=== PATIENT | female | born 1995 | race African-American/Black ===

== ENCOUNTER 2021-04-13 06:00 | Emergency (ER) | payer OTHER ==
[~2021-04-13] VITALS: Ht 167.6 cm; Wt 115.0 kg
[2021-04-13 06:08] VITALS: BP 122/64
[2021-04-13] MEDS ORDERED: ONDANSETRON 4MG ODT PO STA (06:20)
[2021-04-13] MEDS ORDERED: MAGNESIUM/ALUMINUM HYDROXIDE/SIMETHICONE 30ML UDC PO STA (06:20)
[2021-04-13 06:42] LABS: CLARITY URINE CLEAR (CLEAR); COLOR URINE YELLOW (YELLOW); KETONES URINE NEGATIVE (NEGATIVE); LEUKOCYTE ESTERASE URINE NEGATIVE (NEGATIVE); NITRITE URINE NEGATIVE (NEGATIVE); OCCULT BLOOD URINE NEGATIVE (NEGATIVE); PROTEIN URINE TRACE (NEGATIVE); SPECIFIC GRAVITY URINE 1.014 (1.005-1.030); UROBILINOGEN URINE 0.2 E.U./dL (0.2-1.0)
[2021-04-13 07:16] LABS: *AMPHETAMINES SCREEN URINE NEGATIVE (NEGATIVE); *BARBITURATES SCREEN URINE NEGATIVE (NEGATIVE); *BENZODIAZEPINES SCREEN URINE NEGATIVE (NEGATIVE); *COCAINE SCREEN URINE NEGATIVE (NEGATIVE); METHADONE URINE SCREEN NEGATIVE (NEGATIVE); OPIATES URINE SCREEN NEGATIVE (NEGATIVE)
[2021-04-13 07:17] LABS: PHENCYCLIDINE URINE SCREEN NEGATIVE (NEGATIVE)
[2021-04-13 07:30] LABS: CANNABINOID URINE SCREEN PRESUMTIVE POSITIVE (NEGATIVE)
[2021-04-13 08:05] LABS: HEMATOCRIT. 34.7 % (36.0-48.0); MEAN CORPUSCULAR HEMOGLOBIN 27.1 pg (28.0-32.0); MEAN CORPUSCULAR VOLUME 85.2 fL (81.0-99.0); MEAN PLATELET VOLUME 8.5 fl (7.4-10.4); PLATELET 401 x1000/uL (130-400); RED BLOOD CELL COUNT 4.07 mill/uL (4.2-5.4)
[2021-04-13 08:09] LABS: CHLORIDE 112 mEq/L (98-107)
[2021-04-13 08:12] LABS: ETHANOL BLOOD < 10 mg/dL
[2021-04-13 08:19] LABS: HCG SCREEN NEGATIVE
[2021-04-13] MEDS ORDERED: MAG355OR21 MT (08:48)
[2021-04-13] MEDS ORDERED: ONDA4TAB5 MT (08:48)
[2021-04-13 08:51] LABS: PLATELET ESTIMATE NORMAL
== END 2021-04-13 09:14 | disposition home or self-care (01) ==
LOC: ER 06:00
DX: R11.2 Nausea with vomiting, unspecified (principal); Z72.89 Other problems related to lifestyle
CPT/HCPCS: 36415; 80053; 80305; 80320; 81003; 83690; 84703; 85025; 99283; Q0162; G0480